=== PATIENT | male | born 1960 | race Caucasian/White ===

== ENCOUNTER → 2018-02-17 | Outpatient (REF) | payer BC, OTHER ==
[2018-02-17 17:15] LABS: BASO % 0.5 % (0.0-1.0); EOS # 0.2 10^3/uL (0.0-0.50); HEMATOCRIT 44.4 % (42.0-52.0); HEMOGLOBIN 15.2 g/dl (13.5-17.5); IMMATURE GRANULOCYTE % 0.2 % (0-3.0); LYMPH # 2.3 10^3/uL (1.5-4.5); LYMPH % 27.6 % (24.0-44.0); MEAN CORPUSCULAR HEMOGLOBIN 30.6 pg (27.0-33.0); MEAN CORPUSCULAR HGB CONC 34.2 g/dl (32.0-36.5); MEAN CORPUSCULAR VOLUME 89.3 fl (80.0-96.0); MONO # 0.7 10^3/uL (0.0-0.8); MONO % 8.3 % (0.0-5.0); NEUTROPHILS # 5.2 10^3/uL (1.8-7.7); NEUTROPHILS % 61.4 % (36.0-66.0); PLATELET COUNT, AUTOMATED 297 10^3/uL (150-450); RED BLOOD COUNT 4.97 10^6/uL (4.30-6.10); RED CELL DISTRIBUTION WIDTH 13.4 % (11.5-14.5); WHITE BLOOD COUNT 8.5 10^3/uL (4.0-10.0)
[2018-02-17 17:46] LABS: ALBUMIN 3.7 GM/DL (3.2-5.2); ALBUMIN/GLOBULIN RATIO 1.23 (1.00-1.93); ALKALINE PHOSPHATASE 49 U/L (45-117); ALT/SGPT 33 U/L (12-78); ANION GAP 13 MEQ/L (8-16); AST/SGOT 17 U/L (7-37); BILIRUBIN,TOTAL 0.6 MG/DL (0.2-1.0); BLOOD UREA NITROGEN 14 MG/DL (7-18); CALCIUM LEVEL 9.1 MG/DL (8.5-10.1); CARBON DIOXIDE LEVEL 25 MEQ/L (21-32); CHLORIDE LEVEL 104 MEQ/L (98-107); CHOLESTEROL LEVEL 217 MG/DL (<200); CREATININE FOR GFR 0.96 MG/DL (0.70-1.30); GLOMERULAR FILTRATION RATE > 60.0 (>56); GLUCOSE, FASTING 70 MG/DL (70-100); HDL CHOLESTEROL 38 MG/DL (>40); LDL CHOLESTEROL 139.6 MG/DL (<100); NON-HDL-C 179 MG/DL; POTASSIUM SERUM 3.7 MEQ/L (3.5-5.1); SODIUM LEVEL 142 MEQ/L (136-145); TOTAL PROTEIN 6.7 GM/DL (6.4-8.2); TRIGLYCERIDES LEVEL 197 MG/DL (<150)
[2018-02-17 18:19] LABS: ESTIMATED AVERAGE GLUCOSE 111 MG/DL (60-110); HEMOGLOBIN A1c 5.5 %
== END ==
LOC: M LABDRAW1 13:46
DX: E78.2 Mixed hyperlipidemia (principal)
CPT/HCPCS: 80053

== ENCOUNTER 2018-06-21 09:55 | Day surgery (SDC) | payer BC, OTHER ==
[2018-06-21] MEDS: NS 1,000 ML IV (10:18)
[2018-06-21] MEDS ORDERED: PROPOFOL 200 MG/20 ML VIAL As Ordered ×4 (10:54→11:17)
[2018-06-21] MEDS ORDERED: LIDOCAINE 2% INJ 100 MG/5 ML SDV (FOR ANES.) As Ordered (10:55)
== END 2018-06-21 12:45 | disposition home or self-care (01) ==
LOC: M OPP 09:55
DX: R13.10 Dysphagia, unspecified (principal); K21.9 Gastro-esophageal reflux disease without esophagitis; I10 Essential (primary) hypertension; I48.91 Unspecified atrial fibrillation; E78.5 Hyperlipidemia, unspecified; Z79.82 Long term (current) use of aspirin; Z79.899 Other long term (current) drug therapy
CPT/HCPCS: 43235

== ENCOUNTER → 2019-04-14 | Outpatient (CLI) | payer BC, OTHER ==
[~2019-04-14] MED LIST: ASPI-255 PO; ATOR40TA75 PO; METO50TA7 PO; OMEP40CA97 PO; RANI300T PO
[2019-04-14 13:08] LABS: BASO # 0.1 10^3/uL (0.0-0.2); BASO % 0.6 % (0.0-1.0); EOS # 0.2 10^3/uL (0.0-0.50); HEMATOCRIT 47.4 % (42.0-52.0); HEMOGLOBIN 15.8 g/dl (13.5-17.5); LYMPH # 2.4 10^3/uL (1.5-4.5); LYMPH % 25.9 % (24.0-44.0); MEAN CORPUSCULAR HEMOGLOBIN 29.9 pg (27.0-33.0); MEAN CORPUSCULAR HGB CONC 33.3 g/dl (32.0-36.5); MEAN CORPUSCULAR VOLUME 89.8 fl (80.0-96.0); MONO # 0.7 10^3/uL (0.0-0.8); MONO % 7.5 % (0.0-5.0); NEUTROPHILS % 63.8 % (36.0-66.0); PLATELET COUNT, AUTOMATED 326 10^3/uL (150-450); RED BLOOD COUNT 5.28 10^6/uL (4.30-6.10); WHITE BLOOD COUNT 9.4 10^3/uL (4.0-10.0)
[2019-04-14 13:22] LABS: ALBUMIN 3.9 GM/DL (3.2-5.2); ALT/SGPT 33 U/L (12-78); BILIRUBIN,TOTAL 0.8 MG/DL (0.2-1.0); BLOOD UREA NITROGEN 18 MG/DL (7-18); CALCIUM LEVEL 9.4 MG/DL (8.5-10.1); CARBON DIOXIDE LEVEL 28 MEQ/L (21-32); CHLORIDE LEVEL 105 MEQ/L (98-107); CHOLESTEROL LEVEL 150 MG/DL (<200); CHOLESTEROL RISK RATIO 3.947 (<5); CREATININE FOR GFR 0.97 MG/DL (0.70-1.30); FREE T4 1.04 NG/DL (0.76-1.46); GLOMERULAR FILTRATION RATE > 60.0 (>56); GLUCOSE, FASTING 96 MG/DL (70-100); HDL CHOLESTEROL 38 MG/DL (>40); LDL CHOLESTEROL 84 MG/DL (<100); NON-HDL-C 112 MG/DL; POTASSIUM SERUM 4.4 MEQ/L (3.5-5.1); SODIUM LEVEL 141 MEQ/L (136-145); THYROID STIMULATING HORMONE 0.737 uIU/ML (0.358-3.740); TOTAL PROTEIN 6.8 GM/DL (6.4-8.2); TRIGLYCERIDES LEVEL 139 MG/DL (<150)
[2019-04-14 13:36] LABS: HEMOGLOBIN A1c 5.6 %
== END ==
LOC: M SMT 08:43
PROVIDERS: ATTEND Family Medicine
DX: Z12.5 Encounter for screening for malignant neoplasm of prostate (principal); R73.9 Hyperglycemia, unspecified; I48.0 Paroxysmal atrial fibrillation; K21.9 Gastro-esophageal reflux disease without esophagitis; E78.5 Hyperlipidemia, unspecified
CPT/HCPCS: 36415; 80053; 80061; 83036; 84439; 84443; 85025; G0103

== ENCOUNTER → 2019-09-06 | Outpatient (REF) | payer OTHER ==
[2019-09-06 12:05] LABS: BASO % 0.4 % (0.0-1.0); EOS # 0.2 10^3/uL (0.0-0.5); EOS % 1.6 % (0.0-3.0); HEMATOCRIT 49.1 % (42.0-52.0); HEMOGLOBIN 15.9 g/dl (13.5-17.5); LYMPH # 1.9 10^3/uL (1.5-5.0); LYMPH % 20.8 % (24.0-44.0); MEAN CORPUSCULAR HEMOGLOBIN 30.2 pg (27.0-33.0); MEAN CORPUSCULAR HGB CONC 32.4 g/dl (32.0-36.5); MEAN CORPUSCULAR VOLUME 93.3 fl (80.0-96.0); MONO # 0.7 10^3/uL (0.0-0.8); MONO % 7.4 % (0.0-5.0); NEUTROPHILS # 6.3 10^3/uL (1.5-8.5); NEUTROPHILS % 69.6 % (36.0-66.0); PLATELET COUNT, AUTOMATED 312 10^3/uL (150-450); RED BLOOD COUNT 5.26 10^6/uL (4.30-6.10); WHITE BLOOD COUNT 9.1 10^3/uL (4.0-10.0)
[2019-09-06 12:29] LABS: ALBUMIN 3.9 GM/DL (3.2-5.2); ALT/SGPT 30 U/L (12-78); BILIRUBIN,TOTAL 0.5 MG/DL (0.2-1.0); BLOOD UREA NITROGEN 16 MG/DL (7-18); CALCIUM LEVEL 8.7 MG/DL (8.5-10.1); CARBON DIOXIDE LEVEL 27 MEQ/L (21-32); CHLORIDE LEVEL 107 MEQ/L (98-107); CHOLESTEROL LEVEL 142 MG/DL (<200); CREATININE FOR GFR 0.97 MG/DL (0.70-1.30); FREE T4 1.16 NG/DL (0.76-1.46); GLOMERULAR FILTRATION RATE > 60.0 (>56); GLUCOSE, FASTING 92 MG/DL (70-100); HDL CHOLESTEROL 40 MG/DL (>40); LDL CHOLESTEROL 85 MG/DL (<100); NON-HDL-C 102 MG/DL; POTASSIUM SERUM 4.4 MEQ/L (3.5-5.1); SODIUM LEVEL 140 MEQ/L (136-145); TOTAL PROTEIN 6.3 GM/DL (6.4-8.2); TRIGLYCERIDES LEVEL 84 MG/DL (<150)
[2019-09-06 12:40] LABS: HEMOGLOBIN A1c 5.7 %
== END ==
LOC: M LABDRAW1 11:19
PROVIDERS: ATTEND Physician Assistant
DX: H61.22 Impacted cerumen, left ear (principal); R73.9 Hyperglycemia, unspecified; I48.0 Paroxysmal atrial fibrillation; E78.5 Hyperlipidemia, unspecified

== ENCOUNTER → 2020-01-23 | Outpatient (CLI) | payer BC, OTHER ==
[~2020-01-23] MED LIST changes: +LISI-538; +ONDA4TAB6
--- NOTE | 2020-01-23 11:26 | REP ---
CT ABDOMEN AND PELVIS WITHOUT CONTRAST: CT abdomen and pelvis performed without oral or IV contrast. Sagittal and coronal reconstruction images are performed. Visualized lung bases are clear. The liver, spleen, adrenals, pancreas are unremarkable. No renal, ureteral or bladder calculus is seen and there is no hydroureteronephrosis. Two cysts are noted in the right kidney, larger in the lower pole 1.8 cm in diameter. There is a subcentimeter cyst in the upper pole of the left kidney. There is no abdominal aortic aneurysm. There is no adenopathy. There is no free air or free fluid. There is no bowel wall thickening. There is no pelvic mass. Urinary bladder is mildly distended and grossly unremarkable. There is a small left inguinal hernia containing noninflamed fat. There are degenerative changes of the spine. IMPRESSION: Small left inguinal hernia contains noninflamed fat. There are two right renal cysts and one subcentimeter left renal cyst. No renal, ureteral or bladder calculus and no hydroureteronephrosis. No evidence of bowel obstruction, free air or free fluid. Electronically Signed by Mike Groves MD 01/24/2020 10:19 P
== END ==
LOC: M RAD 10:09
PROVIDERS: ATTEND Physician Assistant
DX: R10.814 Left lower quadrant abdominal tenderness (principal); N28.1 Cyst of kidney, acquired; K40.90 Unilateral inguinal hernia, without obstruction or gangrene, not specified as recurrent

== ENCOUNTER 2020-01-25 10:24 | Emergency (ER) | payer BC, OTHER ==
[~2020-01-25] VITALS: Ht 195.6 cm; Wt 150.0 kg
[~2020-01-25 10:24] MED LIST changes: -LISI-538; -ONDA4TAB6
[2020-01-25] MEDS ORDERED: ONDA4TAB6 (10:33)
[2020-01-25] MEDS ORDERED: LISI-538 (10:33)
[2020-01-25 11:46] LABS: BASO % 0.4 % (0.0-1.0); EOS # 0.1 10^3/uL (0.0-0.5); EOS % 1.3 % (0.0-3.0); HEMATOCRIT 47.1 % (42.0-52.0); HEMOGLOBIN 16.4 g/dl (13.5-17.5); LYMPH # 2.3 10^3/uL (1.5-5.0); LYMPH % 23.8 % (24.0-44.0); MEAN CORPUSCULAR HEMOGLOBIN 31.1 pg (27.0-33.0); MEAN CORPUSCULAR HGB CONC 34.8 g/dl (32.0-36.5); MEAN CORPUSCULAR VOLUME 89.4 fl (80.0-96.0); MONO # 0.7 10^3/uL (0.0-0.8); MONO % 7.2 % (0.0-5.0); NEUTROPHILS # 6.4 10^3/uL (1.5-8.5); PLATELET COUNT, AUTOMATED 283 10^3/uL (150-450); RED BLOOD COUNT 5.27 10^6/uL (4.30-6.10); WHITE BLOOD COUNT 9.5 10^3/uL (4.0-10.0)
[2020-01-25 12:06] LABS: ALBUMIN 3.4 GM/DL (3.2-5.2); ALT/SGPT 35 U/L (12-78); BILIRUBIN,DIRECT 0.1 MG/DL (0.0-0.2); BILIRUBIN,TOTAL 0.7 MG/DL (0.2-1.0); BLOOD UREA NITROGEN 17 MG/DL (7-18); CALCIUM LEVEL 8.9 MG/DL (8.5-10.1); CARBON DIOXIDE LEVEL 27 MEQ/L (21-32); CHLORIDE LEVEL 109 MEQ/L (98-107); CREATININE FOR GFR 0.88 MG/DL (0.70-1.30); GLOMERULAR FILTRATION RATE > 60.0 (>56); GLUCOSE, FASTING 87 MG/DL (70-100); LIPASE 61 U/L (73-393); POTASSIUM SERUM 3.9 MEQ/L (3.5-5.1); SODIUM LEVEL 138 MEQ/L (136-145); TOTAL PROTEIN 6.7 GM/DL (6.4-8.2)
[2020-01-25 12:27] LABS: CK-MB VALUE MASS 2.2 NG/ML (<3.6); CPK CREATINE PHOSPHOKINASE 151 U/L (39-308); MB/CK RELATIVE INDEX 1.46 (< OR =4); TROPONIN I < 0.02 NG/ML (< 0.10)
[2020-01-25] MEDS ORDERED: ISOVUE-370 76% 100ML VIAL As Ordered ONE (13:08)
--- NOTE | 2020-01-25 13:48 | REP ---
LEFT RIB SERIES: Four view of the left ribs performed. No fracture or bone lesion is seen. An accompanying PA view of the chest demonstrates no acute infiltrate. Heart and mediastinum appear unremarkable. IMPRESSION: Negative left rib series. Electronically Signed by Mike Groves MD 01/30/2020 06:06 P
[2020-01-25 15:13] VITALS: BP 140/90
--- NOTE | 2020-01-25 15:41 | REP ---
CT ANGIOGRAM OF THE CHEST: TECHNIQUE: Axial contrast-enhanced images from the thoracic inlet to the upper abdomen using 100 mL Isovue-370 intravenous contrast material with multiplanar reformations. There is no CT evidence of pulmonary embolism. There is no thoracic aortic aneurysm or dissection. The heart is normal in size. No axillary adenopathy is seen. 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 Another mass just above this is partially obscured by streak artifact from the ejected IV contrast. The approximate diameter is 1.8 cm. This could be part of the right lobe of the thyroid. There is no pleural or pericardial effusion. There is no acute infiltrate in either lung. There are mild degenerative changes of the spine. IMPRESSION: No CT evidence of pulmonary embolism or aortic dissection. Superior mediastinal mass has discussed above. Another 1.8 cm mass is seen just above this, which is partially obscured by streak artifact from the injected IV contrast in the right arm. This could possibly be originating from the thyroid. Electronically Signed by Mike Groves MD 01/30/2020 06:11 P
--- NOTE | 2020-01-25 15:45 | REP ---
CT ABDOMEN AND PELVIS WITHOUT IV CONTRAST: TECHNIQUE: Axial contrast-enhanced images from the lung bases to the pubic symphysis using 100 mL Isovue-370 intravenous contrast material with multiplanar reformations. The liver demonstrates a subcentimeter enhancing nodule superiorly in the left lobe most consistent with a small hemangioma. The gallbladder is grossly unremarkable. Spleen is normal in size with no intrinsic abnormality. The adrenal glands are normal. No pancreatic mass is seen. There are two cysts of the right kidney again seen. There appears to be a tiny subcentimeter cyst of the left kidney. There is no hydronephrosis or hydroureter bilaterally. There is mild atherosclerotic calcification of the abdominal aorta with no aneurysm or dissection. There is no adenopathy. There is no free air or free fluid. There is no bowel wall thickening. There is no pelvic mass. There is a small left inguinal hernia containing noninflamed fat. The urinary bladder is grossly unremarkable. There are mild degenerative changes of the spine. IMPRESSION: No acute abnormalities detected as discussed above. Small left inguinal hernia contains noninflamed fat. Electronically Signed by Mike Groves MD 01/30/2020 06:11 P
--- NOTE | 2020-01-25 21:32 | ECGEPIP ---
[facility] - ED Test Date: 2020-01-25 Pat Name: JUAN ÁLVAREZ Department: Room: - Gender: Male [employer]: : 1960 Requested By: SAHRA Espinosa PA-C Order Number: [id number] Reading MD: Huan Evans Measurements Intervals [place] Rate: 72 P: 31 WI: 178 QRS: 20 QRSD: 98 T: 15 QT: 352 QTc: 385 Interpretive Statements SINUS RHYTHM NONSPECIFIC T WAVE ABNORMALITIES SIMILAR TO 05/20/16 Electronically Signed on 01-25-2020 21:32:25 EDT by Huan Evans
== END 2020-01-25 15:18 | disposition home or self-care (01) ==
LOC: M ED 11:45
DX: J98.59 Other diseases of mediastinum, not elsewhere classified (principal); R07.89 Other chest pain; I10 Essential (primary) hypertension; I48.91 Unspecified atrial fibrillation; E78.5 Hyperlipidemia, unspecified; K21.9 Gastro-esophageal reflux disease without esophagitis; G47.33 Obstructive sleep apnea (adult) (pediatric); Z79.899 Other long term (current) drug therapy; Z79.82 Long term (current) use of aspirin
CPT/HCPCS: 71101; 71275; 74177; 80048; 80076; 81001; 82550; 82553; 83690; 84484; 85025; 93005; 99284; Q9967

== ENCOUNTER → 2020-02-05 | Outpatient (CLI) | payer BC, OTHER ==
[~2020-02-05] MED LIST changes: +LISI-538; +ONDA4TAB6
== END ==
LOC: M LABSMTC 11:38
PROVIDERS: ATTEND Internal Medicine Pulmonary Disease
DX: Z03.818 Encounter for observation for suspected exposure to other biological agents ruled out (principal); Z11.59 Encounter for screening for other viral diseases
CPT/HCPCS: C9803; U0003

== ENCOUNTER → 2020-03-04 | Outpatient (CLI) | payer BC, OTHER ==
[2020-03-04 09:47] LABS: BLOOD UREA NITROGEN 16 MG/DL (7-18); CARBON DIOXIDE LEVEL 30 MEQ/L (21-32); CHLORIDE LEVEL 107 MEQ/L (98-107); CREATININE FOR GFR 0.98 MG/DL (0.70-1.30); GLOMERULAR FILTRATION RATE > 60.0 (>56); GLUCOSE, FASTING 88 MG/DL (70-100); POTASSIUM SERUM 4.4 MEQ/L (3.5-5.1); SODIUM LEVEL 140 MEQ/L (136-145)
[2020-03-04 09:50] LABS: HEMOGLOBIN A1c 5.7 %
== END ==
LOC: M LAB 08:36
PROVIDERS: ATTEND Physician Assistant
DX: K21.9 Gastro-esophageal reflux disease without esophagitis (principal); R73.9 Hyperglycemia, unspecified; Z12.5 Encounter for screening for malignant neoplasm of prostate

== ENCOUNTER → 2020-03-04 | Outpatient (CLI) | payer BC, OTHER ==
[2020-03-04 09:52] LABS: CHOLESTEROL RISK RATIO 3.46 (<5)
== END ==
LOC: M LAB 08:39
PROVIDERS: ATTEND Physician Assistant
DX: E78.2 Mixed hyperlipidemia (principal)

== ENCOUNTER 2020-04-08 10:41 | Day surgery (SDC) | payer BC, OTHER ==
[~2020-04-08] VITALS: Ht 195.6 cm; Wt 150.6 kg
[2020-04-08] MEDS ORDERED: propofoL 200 MG/20 ML VIAL As Ordered ONE (12:40)
[2020-04-08] MEDS ORDERED: LIDOCAINE 2% 100MG/5ML SDV (FOR ANES.) As Ordered ONE (12:40)
[2020-04-08 13:20] VITALS: BP 100/60
--- NOTE | 2020-04-24 11:30 | ROOR ---
Patient Name: Adilson Escalona Procedure Date: 04/08/2020 11:21 AM Date of : 1960 Age: 59 Room: [facility] Gender: Male Note Status: [employer] Procedure: Total Colonoscopy to Cecum + Cold Snare Polypectomy + Hemoclips Indications: High risk colon cancer surveillance: Personal history of colonic polyps, Last colonoscopy: 2014 Providers: David Pate MD Referring MD: Yoly NORWOOD DO Requesting Provider: Medicines: Monitored Anesthesia Care Complications: No immediate complications. Procedure: Pre-Anesthesia Assessment: - The heart rate, respiratory rate, oxygen saturations, blood pressure, adequacy of pulmonary ventilation, and response to care were monitored throughout the procedure. The Colonoscope was introduced through the anus and advanced to the cecum, identified by appendiceal orifice and ileocecal valve. The colonoscopy was performed without difficulty. The patient tolerated the procedure well. The quality of the bowel preparation was excellent. Findings: The perianal and digital rectal examinations were normal. Non-bleeding internal hemorrhoids were found during retroflexion. The hemorrhoids were small and Grade I (internal hemorrhoids that do not prolapse). Multiple small and large-mouthed diverticula were found in the recto-sigmoid colon, sigmoid colon and descending colon. A small polyp was found in the rectum. The polyp was sessile. The polyp was removed with a cold biopsy forceps. Resection and retrieval were complete. Two pedunculated polyps were found at 30 cm proximal to the anus. The polyps were small in size. These polyps were removed with a jumbo cold forceps. Resection and retrieval were complete. To prevent bleeding after the polypectomy, two hemostatic clips were successfully placed (MR conditional). There was no bleeding at the end of the procedure. The exam was otherwise without abnormality on direct and retroflexion views. Impression: - Non-bleeding internal hemorrhoids. - Diverticulosis in the recto-sigmoid colon, in the sigmoid colon and in the descending colon. - One small polyp in the rectum, removed with a cold biopsy forceps. Resected and retrieved. - Two small polyps at 30 cm proximal to the anus, removed with a jumbo cold forceps. Resected and retrieved. Clips (MR conditional) were placed. - The examination was otherwise normal on direct and retroflexion views. - The exam was otherwise normal to the cecum. Recommendation: - Patient has a contact number available for emergencies. The signs and symptoms of potential delayed complications were discussed with the patient. Return to normal activities tomorrow. Written discharge instructions were provided to the patient. - High fiber diet. - Discharge patient to home. - Continue present medications. - Await pathology results. - Telephone GI clinic for pathology results in 1 week. - Repeat colonoscopy in 3 years for surveillance based on pathology results. - Return to referring physician. - The findings and recommendations were discussed with the patient. David Pate MD 04/08/2020 12:53:30 PM Number of Addenda: 0 Note Initiated On: 04/08/2020 11:21 AM Estimated Blood Loss: Estimated blood loss: none.
== END 2020-04-08 13:34 | disposition home or self-care (01) ==
LOC: M OPP 10:41
PROVIDERS: ATTEND Internal Medicine Gastroenterology
DX: Z12.11 Encounter for screening for malignant neoplasm of colon (principal); Z86.010 Personal history of colon polyps; K64.0 First degree hemorrhoids; K62.1 Rectal polyp; D12.6 Benign neoplasm of colon, unspecified; K57.30 Diverticulosis of large intestine without perforation or abscess without bleeding; I10 Essential (primary) hypertension; I48.91 Unspecified atrial fibrillation; Z79.82 Long term (current) use of aspirin; Z79.899 Other long term (current) drug therapy

== ENCOUNTER → 2020-09-10 | Outpatient (CLI) | payer BC, OTHER ==
[~2020-09-10] MED LIST changes: -LISI-538; +LISI20TA33
[2020-09-10 09:05] LABS: BASO % 0.5 % (0.0-1.0); EOS # 0.2 10^3/uL (0.0-0.5); EOS % 2.2 % (0.0-3.0); HEMOGLOBIN 15.6 g/dl (13.5-17.5); LYMPH # 1.8 10^3/uL (1.5-5.0); LYMPH % 23.1 % (24.0-44.0); MEAN CORPUSCULAR HEMOGLOBIN 30.5 pg (27.0-33.0); MEAN CORPUSCULAR HGB CONC 33.9 g/dl (32.0-36.5); MONO # 0.6 10^3/uL (0.0-0.8); MONO % 7.4 % (0.0-5.0); NEUTROPHILS # 5.2 10^3/uL (1.5-8.5); NEUTROPHILS % 66.5 % (36.0-66.0); PLATELET COUNT, AUTOMATED 267 10^3/uL (150-450); RED BLOOD COUNT 5.11 10^6/uL (4.30-6.10); WHITE BLOOD COUNT 7.7 10^3/uL (4.0-10.0)
[2020-09-10 09:42] LABS: ALBUMIN 3.9 GM/DL (3.2-5.2); ALT/SGPT 42 U/L (12-78); BILIRUBIN,TOTAL 0.4 MG/DL (0.2-1.0); BLOOD UREA NITROGEN 20 MG/DL (7-18); CALCIUM LEVEL 9.4 MG/DL (8.5-10.1); CARBON DIOXIDE LEVEL 29 MEQ/L (21-32); CHLORIDE LEVEL 103 MEQ/L (98-107); CHOLESTEROL LEVEL 149 MG/DL (<200); CHOLESTEROL RISK RATIO 3.239 (<5); FREE T4 1.06 NG/DL (0.76-1.46); GLOMERULAR FILTRATION RATE > 60.0 (>56); GLUCOSE, FASTING 99 MG/DL (70-100); HDL CHOLESTEROL 46 MG/DL (>40); LDL CHOLESTEROL 83 MG/DL (<100); NON-HDL-C 103 MG/DL; POTASSIUM SERUM 4.3 MEQ/L (3.5-5.1); SODIUM LEVEL 139 MEQ/L (136-145); TOTAL PROTEIN 6.5 GM/DL (6.4-8.2); TRIGLYCERIDES LEVEL 98 MG/DL (<150)
[2020-09-10 11:57] LABS: HEMOGLOBIN A1c 5.2 %
== END ==
LOC: M LAB 08:28
PROVIDERS: ATTEND Family Medicine
DX: R73.9 Hyperglycemia, unspecified (principal); E78.5 Hyperlipidemia, unspecified; K21.9 Gastro-esophageal reflux disease without esophagitis

== ENCOUNTER → 2021-02-21 | Outpatient (CLI) | payer BC, OTHER ==
[~2021-02-21] MED LIST changes: +OMEP40CA4 PO; -OMEP40CA97 PO
[2021-02-21 11:56] LABS: ALBUMIN 3.9 GM/DL (3.2-5.2); ALT/SGPT 37 U/L (12-78); BILIRUBIN,TOTAL 0.6 MG/DL (0.2-1.0); BLOOD UREA NITROGEN 16 MG/DL (7-18); CALCIUM LEVEL 8.5 MG/DL (8.5-10.1); CARBON DIOXIDE LEVEL 30 MEQ/L (21-32); CHLORIDE LEVEL 108 MEQ/L (98-107); CHOLESTEROL LEVEL 181 MG/DL (<200); CHOLESTEROL RISK RATIO 4.209 (<5); CREATININE FOR GFR 0.95 MG/DL (0.70-1.30); FREE T4 1.09 NG/DL (0.76-1.46); GLOMERULAR FILTRATION RATE > 60.0 (>56); GLUCOSE, FASTING 92 MG/DL (70-100); HDL CHOLESTEROL 43 MG/DL (>40); LDL CHOLESTEROL 116 MG/DL (<100); NON-HDL-C 138 MG/DL; POTASSIUM SERUM 4.5 MEQ/L (3.5-5.1); SODIUM LEVEL 141 MEQ/L (136-145); THYROID STIMULATING HORMONE 0.479 uIU/ML (0.358-3.740); TOTAL PROTEIN 6.7 GM/DL (6.4-8.2); TRIGLYCERIDES LEVEL 109 MG/DL (<150)
[2021-02-23 08:09] LABS: PSA TOTAL 0.6 ng/mL (0.0-4.0)
== END ==
LOC: M LAB 09:45
PROVIDERS: ATTEND Physician Assistant
DX: Z00.01 Encounter for general adult medical examination with abnormal findings (principal); I48.0 Paroxysmal atrial fibrillation; E78.5 Hyperlipidemia, unspecified; N40.0 Benign prostatic hyperplasia without lower urinary tract symptoms

== ENCOUNTER → 2021-05-03 | Outpatient (CLI) | payer BC, OTHER | LOC: M RAD 10:53 | PROVIDERS: ATTEND Physician Assistant | DX: M54.5 Low back pain (principal) ==

== ENCOUNTER → 2021-09-12 | Outpatient (CLI) | payer BC, OTHER ==
[2021-09-12 13:14] LABS: BASO # 0.1 10^3/uL (0.0-0.2); BASO % 0.5 % (0.0-1.0); EOS # 0.2 10^3/uL (0.0-0.5); EOS % 1.8 % (0.0-3.0); HEMATOCRIT 48.1 % (42.0-52.0); HEMOGLOBIN 16.3 g/dl (13.5-17.5); LYMPH # 2.2 10^3/uL (1.5-5.0); LYMPH % 21.5 % (24.0-44.0); MEAN CORPUSCULAR HEMOGLOBIN 30.2 pg (27.0-33.0); MEAN CORPUSCULAR HGB CONC 33.9 g/dl (32.0-36.5); MEAN CORPUSCULAR VOLUME 89.2 fl (80.0-96.0); MONO # 0.9 10^3/uL (0.0-0.8); MONO % 8.5 % (2.0-8.0); NEUTROPHILS % 67.5 % (36.0-66.0); PLATELET COUNT, AUTOMATED 287 10^3/uL (150-450); RED BLOOD COUNT 5.39 10^6/uL (4.30-6.10); WHITE BLOOD COUNT 10.4 10^3/uL (4.0-10.0)
[2021-09-12 14:02] LABS: ALBUMIN 3.7 GM/DL (3.2-5.2); ALT/SGPT 32 U/L (12-78); BILIRUBIN,TOTAL 0.5 MG/DL (0.2-1.0); BLOOD UREA NITROGEN 15 MG/DL (7-18); CALCIUM LEVEL 9.3 MG/DL (8.5-10.1); CARBON DIOXIDE LEVEL 27 MEQ/L (21-32); CHLORIDE LEVEL 105 MEQ/L (98-107); CHOLESTEROL LEVEL 252 MG/DL (<200); CHOLESTEROL RISK RATIO 5.727 (<5); CREATININE FOR GFR 1.14 MG/DL (0.70-1.30); FREE T4 1.19 NG/DL (0.76-1.46); GLOMERULAR FILTRATION RATE > 60.0 (>56); GLUCOSE, FASTING 90 MG/DL (70-100); HDL CHOLESTEROL 44 MG/DL (>40); LDL CHOLESTEROL 180 MG/DL (<100); NON-HDL-C 208 MG/DL; POTASSIUM SERUM 4.8 MEQ/L (3.5-5.1); SODIUM LEVEL 138 MEQ/L (136-145); THYROID STIMULATING HORMONE 0.698 uIU/ML (0.358-3.740); TRIGLYCERIDES LEVEL 139 MG/DL (<150)
[2021-09-12 16:05] LABS: HEMOGLOBIN A1c 5.7 %
== END ==
LOC: M PLALAB 10:56
PROVIDERS: ATTEND Nurse Practitioner Adult Health
DX: E78.5 Hyperlipidemia, unspecified (principal); E66.01 Morbid (severe) obesity due to excess calories; G47.33 Obstructive sleep apnea (adult) (pediatric)

== ENCOUNTER → 2022-09-08 | Outpatient (CLI) | payer BC, OTHER ==
[2022-09-08 13:16] LABS: BASO # 0.1 10^3/uL (0.0-0.2); BASO % 0.5 % (0.0-1.0); EOS # 0.1 10^3/uL (0.0-0.5); EOS % 0.9 % (0.0-3.0); HEMATOCRIT 51.7 % (42.0-52.0); HEMOGLOBIN 17.1 g/dl (13.5-17.5); LYMPH % 34.4 % (24.0-44.0); MEAN CORPUSCULAR HEMOGLOBIN 30.7 pg (27.0-33.0); MEAN CORPUSCULAR HGB CONC 33.1 g/dl (32.0-36.5); MEAN CORPUSCULAR VOLUME 92.8 fl (80.0-96.0); MONO # 0.9 10^3/uL (0.0-0.8); MONO % 7.5 % (2.0-8.0); NEUTROPHILS # 6.6 10^3/uL (1.5-8.5); NEUTROPHILS % 56.1 % (36.0-66.0); PLATELET COUNT, AUTOMATED 337 10^3/uL (150-450); RED BLOOD COUNT 5.57 10^6/uL (4.30-6.10); WHITE BLOOD COUNT 11.8 10^3/uL (4.0-10.0)
[2022-09-08 13:25] LABS: ERYTHROCYTE SEDIMENTATION RATE 4 mm/hr (0-20)
[2022-09-08 13:43] LABS: URIC ACID 6.8 MG/DL (3.7-9.2)
[2022-09-08 13:44] LABS: C REACTIVE PROTEIN QUANTITATIV < 0.40 MG/DL (<1.0)
[2022-09-09 23:07] LABS: ANA (HEP2) Negative (.); CYCLIC CITRULLINATED PEPTIDE 1 units (0-19); IgG P18 AB Absent (.); IgG P23 AB Absent (.); IgG P28 AB Absent (.); IgG P30 AB Absent (.); IgG P39 AB Absent (.); IgG P41 AB Absent (.); IgG P45 AB Absent (.); IgG P66 AB Absent (.); IgG P93 AB Absent (.); IgM P23 AB Absent (.); IgM P39 AB Absent (.); IgM P41 AB Absent (.); LYME IgG WB INTERPRETATION Negative (.); LYME IgM WB INTERPRETATION Negative (.)
== END ==
LOC: M PLALAB 09:47
PROVIDERS: ATTEND Family Medicine
DX: L02.12 Furuncle of neck (principal)

== ENCOUNTER → 2022-12-23 | Outpatient (CLI) | payer BC, OTHER ==
[2022-12-23 18:02] LABS: HEMOGLOBIN A1c 5.5 % (4.0-6.0)
[2022-12-23 18:09] LABS: BASO # 0.1 10^3/uL (0.0-0.2); BASO % 0.5 % (0.0-1.0); EOS # 0.2 10^3/uL (0.0-0.5); EOS % 1.9 % (0.0-3.0); HEMATOCRIT 45.2 % (42.0-52.0); HEMOGLOBIN 15.1 g/dl (13.5-17.5); LYMPH # 2.8 10^3/uL (1.5-5.0); LYMPH % 29.5 % (24.0-44.0); MEAN CORPUSCULAR HEMOGLOBIN 30.4 pg (27.0-33.0); MEAN CORPUSCULAR HGB CONC 33.4 g/dl (32.0-36.5); MEAN CORPUSCULAR VOLUME 90.9 fl (80.0-96.0); MONO # 0.8 10^3/uL (0.0-0.8); MONO % 8.4 % (2.0-8.0); NEUTROPHILS # 5.7 10^3/uL (1.5-8.5); NEUTROPHILS % 59.3 % (36.0-66.0); PLATELET COUNT, AUTOMATED 292 10^3/uL (150-450); RED BLOOD COUNT 4.97 10^6/uL (4.30-6.10); WHITE BLOOD COUNT 9.6 10^3/uL (4.0-10.0)
[2022-12-23 18:14] LABS: ALBUMIN 3.8 G/DL (3.2-5.2); ALKALINE PHOSPHATASE 49 U/L (46-116); ALT/SGPT 35 U/L (7.0-40); AST/SGOT 23 U/L (<34); BILIRUBIN,TOTAL 0.7 MG/DL (0.3-1.2); BLOOD UREA NITROGEN 19 MG/DL (9-23); CALCIUM LEVEL 9.1 MG/DL (8.3-10.6); CARBON DIOXIDE LEVEL 27 MMOL/L (20-31); CHLORIDE LEVEL 105 MMOL/L (98-107); CHOLESTEROL LEVEL 221 MG/DL (<200); CHOLESTEROL RISK RATIO 4.69 (<5); CREATININE FOR GFR 0.87 MG/DL (0.70-1.30); GLOMERULAR FILTRATION RATE > 60.0 (>49); GLUCOSE, FASTING 78 MG/DL (74-106); HDL CHOLESTEROL 47.1 MG/DL (>40); LDL CHOLESTEROL 149.9 MG/DL (<100); NON-HDL-C 173.9 MG/DL; POTASSIUM SERUM 3.7 MMOL/L (3.5-5.1); SODIUM LEVEL 135 MMOL/L (136-145); TOTAL PROTEIN 6.5 G/DL (5.7-8.2); TRIGLYCERIDES LEVEL 120 MG/DL (<150)
[2022-12-23 18:17] LABS: FREE T4 1.17 NG/DL (0.89-1.76); THYROID STIMULATING HORMONE 0.326 uIU/ML (0.55-4.78)
== END ==
LOC: M PLALAB 15:59
PROVIDERS: ATTEND Nurse Practitioner Adult Health
DX: E78.5 Hyperlipidemia, unspecified (principal)

== ENCOUNTER → 2023-07-19 | Outpatient (CLI) | payer BC, OTHER ==
[2023-07-19 16:16] LABS: BASO # 0.1 10^3/uL (0.0-0.2); BASO % 0.5 % (0.0-1.0); EOS # 0.2 10^3/uL (0.0-0.5); EOS % 2.4 % (0.0-3.0); HEMATOCRIT 44.4 % (42.0-52.0); HEMOGLOBIN 15.2 g/dl (13.5-17.5); LYMPH # 2.7 10^3/uL (1.5-5.0); LYMPH % 28.8 % (24.0-44.0); MEAN CORPUSCULAR HGB CONC 34.2 g/dl (32.0-36.5); MEAN CORPUSCULAR VOLUME 90.6 fl (80.0-96.0); MONO # 0.7 10^3/uL (0.0-0.8); MONO % 7.3 % (2.0-8.0); NEUTROPHILS # 5.6 10^3/uL (1.5-8.5); NEUTROPHILS % 60.8 % (36.0-66.0); PLATELET COUNT, AUTOMATED 301 10^3/uL (150-450); WHITE BLOOD COUNT 9.2 10^3/uL (4.0-10.0)
[2023-07-19 16:48] LABS: ALBUMIN 3.7 G/DL (3.2-5.2); ALKALINE PHOSPHATASE 51 U/L (46-116); ALT/SGPT 29 U/L (7.0-40); AST/SGOT 20 U/L (<34); BILIRUBIN,TOTAL 0.6 MG/DL (0.3-1.2); BLOOD UREA NITROGEN 15 MG/DL (9-23); CALCIUM LEVEL 9.1 MG/DL (8.3-10.6); CARBON DIOXIDE LEVEL 28 MMOL/L (20-31); CHLORIDE LEVEL 104 MMOL/L (98-107); CHOLESTEROL LEVEL 228 MG/DL (<200); CHOLESTEROL RISK RATIO 4.77 (<5); CREATININE FOR GFR 0.96 MG/DL (0.70-1.30); GLOMERULAR FILTRATION RATE > 60.0 (>49); GLUCOSE, FASTING 79 MG/DL (74-106); HDL CHOLESTEROL 47.7 MG/DL (>40); LDL CHOLESTEROL 156.7 MG/DL (<100); NON-HDL-C 180.3 MG/DL; POTASSIUM SERUM 4.2 MMOL/L (3.5-5.1); SODIUM LEVEL 140 MMOL/L (136-145); TOTAL PROTEIN 6.5 G/DL (5.7-8.2); TRIGLYCERIDES LEVEL 118 MG/DL (<150)
[2023-07-19 16:50] LABS: HEMOGLOBIN A1c 5.4 % (4.0-6.0)
[2023-07-19 16:52] LABS: FREE T4 1.15 NG/DL (0.89-1.76); THYROID STIMULATING HORMONE 0.581 uIU/ML (0.55-4.78)
== END ==
LOC: M PLALAB 13:47
PROVIDERS: ATTEND Nurse Practitioner Adult Health
DX: Z12.5 Encounter for screening for malignant neoplasm of prostate (principal); I10 Essential (primary) hypertension; E78.5 Hyperlipidemia, unspecified; R73.9 Hyperglycemia, unspecified

== ENCOUNTER → 2024-06-06 | Outpatient (CLI) | payer BC ==
[~2024-06-06] MED LIST changes: -LISI20TA33; +LISI20TA33 PO; +ONDA-282; -ONDA4TAB6
== END ==
LOC: M PLAIMG 13:41
PROVIDERS: ATTEND Nurse Practitioner Adult Health
DX: M25.561 Pain in right knee (principal)

== ENCOUNTER 2024-06-19 08:59 | Day surgery (SDC) | payer BC ==
[~2024-06-19] VITALS: Ht 195.6 cm; Wt 167.6 kg
[~2024-06-19 08:59] MED LIST changes: +NS 250 ML IV ONE
[2024-06-19] MEDS ORDERED: LIDOCAINE 2% 100MG/5ML SDV (FOR ANES.) As Ordered ONE (10:48)
[2024-06-19] MEDS ORDERED: propofoL 200 MG/20 ML VIAL As Ordered ONE (10:48)
[2024-06-19 11:04] VITALS: TEMP 97.7
[2024-06-19 11:28] VITALS: BP 139/94; O2SAT 95
== END 2024-06-19 11:35 | disposition home or self-care (01) ==
LOC: M OPP 08:59
PROVIDERS: ATTEND Internal Medicine Gastroenterology
DX: Z12.11 Encounter for screening for malignant neoplasm of colon (principal); Z86.0100 Personal history of colon polyps, unspecified; K64.0 First degree hemorrhoids; K57.30 Diverticulosis of large intestine without perforation or abscess without bleeding; I48.91 Unspecified atrial fibrillation; I10 Essential (primary) hypertension; G47.33 Obstructive sleep apnea (adult) (pediatric); R06.83 Snoring; Z79.82 Long term (current) use of aspirin; Z79.899 Other long term (current) drug therapy

== ENCOUNTER → 2024-09-20 | Outpatient (CLI) | payer BC ==
[~2024-09-20] MED LIST changes: -NS 250 ML IV ONE
== END ==
LOC: M WUC 11:26
PROVIDERS: ATTEND Nurse Practitioner Family
DX: M25.561 Pain in right knee (principal)

== ENCOUNTER → 2025-03-12 | Outpatient (CLI) | payer BC ==
[~2025-03-12] MED LIST changes: +ISOVUE-370 76% 100 ML VIAL As Ordered ONE
[2025-03-12 16:27] LABS: BASO # 0.1 10^3/uL (0.0-0.2); BASO % 0.4 % (0.0-1.0); EOS # 0.1 10^3/uL (0.0-0.5); EOS % 0.7 % (0.0-3.0); LYMPH # 2.2 10^3/uL (1.5-5.0); LYMPH % 17.1 % (24.0-44.0); MONO # 1.0 10^3/uL (0.0-0.8); MONO % 8.1 % (2.0-8.0); NEUTROPHILS # 9.4 10^3/uL (1.5-8.5); NEUTROPHILS % 73.3 % (36.0-66.0); PLATELET COUNT, AUTOMATED 326 10^3/uL (150-450)
[2025-03-12 16:47] LABS: ERYTHROCYTE SEDIMENTATION RATE 21 mm/hr (0-20)
[2025-03-12 16:58] LABS: ALT/SGPT 33 U/L (7.0-40); AST/SGOT 23 U/L (<34); C REACTIVE PROTEIN QUANTITATIV 0.59 MG/DL (<1.0)
[2025-03-12 17:00] LABS: FREE T4 1.52 NG/DL (0.89-1.76)
[2025-03-12 17:38] LABS: HEPATITIS C VIRUS ABY INDEX 0.02 INDEX (<0.8)
== END ==
LOC: M RAD 16:01
PROVIDERS: ATTEND Nurse Practitioner Adult Health
DX: R19.7 Diarrhea, unspecified (principal)

== ENCOUNTER → 2025-03-13 | Outpatient (REF) | payer BC ==
[~2025-03-13] MED LIST changes: -ISOVUE-370 76% 100 ML VIAL As Ordered ONE
== END ==
LOC: M LAB REF 19:33
PROVIDERS: ATTEND Nurse Practitioner Adult Health
DX: R19.7 Diarrhea, unspecified (principal)

== ENCOUNTER → 2025-04-04 | Outpatient (CLI) | payer BC | LOC: M CARPUL 09:40 | PROVIDERS: ATTEND Physician Assistant | DX: I77.810 Thoracic aortic ectasia (principal) ==

== ENCOUNTER → 2025-08-07 | Outpatient (CLI) | payer BC ==
[2025-08-07 09:58] LABS: BASO # 0.1 10^3/uL (0.0-0.2); BASO % 0.6 % (0.0-1.0); EOS # 0.2 10^3/uL (0.0-0.5); EOS % 2.3 % (0.0-3.0); LYMPH # 2.7 10^3/uL (1.5-5.0); LYMPH % 26.4 % (24.0-44.0); MONO # 0.7 10^3/uL (0.0-0.8); MONO % 7.2 % (2.0-8.0); NEUTROPHILS # 6.4 10^3/uL (1.5-8.5); NEUTROPHILS % 63.2 % (36.0-66.0); PLATELET COUNT, AUTOMATED 347 10^3/uL (150-450)
[2025-08-07 10:28] LABS: ALT/SGPT 22.0 U/L (7.0-40); AST/SGOT 14.0 U/L (<34); CALCIUM LEVEL 9.2 MG/DL (8.3-10.6); CARBON DIOXIDE LEVEL 30.0 MMOL/L (20-31); CHLORIDE LEVEL 103.0 MMOL/L (98-107); CHOLESTEROL LEVEL 203.0 MG/DL (<200); CHOLESTEROL RISK RATIO 4.83 (<5); CREATININE FOR GFR 1.26 MG/DL (0.70-1.30); GLOMERULAR FILTRATION RATE 64.5 (>49); LDL CHOLESTEROL 118.2 MG/DL (<100); NON-HDL-C 161.0 MG/DL; POTASSIUM SERUM 4.5 MMOL/L (3.5-5.1); SODIUM LEVEL 140.0 MMOL/L (136-145); TRIGLYCERIDES LEVEL 214.0 MG/DL (<150)
[2025-08-07 10:34] LABS: FREE T4 1.38 NG/DL (0.89-1.76)
== END ==
LOC: M LAB 08:56
PROVIDERS: ATTEND Physician Assistant
DX: R94.6 Abnormal results of thyroid function studies (principal); E78.2 Mixed hyperlipidemia